=== PATIENT | male | born 2000 | race African-American/Black ===

== ENCOUNTER 2019-06-07 16:27 | Emergency (ER) | payer BC, MEDICAID ==
[~2019-06-07] VITALS: Ht 190.5 cm; Wt 136.4 kg
[2019-06-07] MEDS ORDERED: LORazepam 1 MG tablet PO ONE (16:50)
[2019-06-07] MEDS ORDERED: OLANZapine 5mg rapidly disint. tablet PO ONE (16:50)
[2019-06-07 17:10] LABS: BASOPHILS # (AUTO) 0.1 X10'3 (0-0.2); BASOPHILS % (AUTO) 0.9 % (0-1); EOSINOPHILS # (AUTO) 0.2 X10'3 (0-0.9); EOSINOPHILS % (AUTO) 2.5 % (0-6); HEMOGLOBIN 15.5 g/dl (14.0-17.9); LYMPHOCYTES # (AUTO) 2.6 X10'3 (1.1-4.8); LYMPHOCYTES % (AUTO) 39.9 % (21-51); MEAN CORPUSCULAR HEMOGLOBIN 28.2 PG (27.0-31.0); MEAN CORPUSCULAR HGB CONC 34.4 g/dL (33.0-36.5); MONOCYTES # (AUTO) 0.5 X10'3 (0-0.9); MONOCYTES % (AUTO) 8.3 % (2-12); NEUTROPHILS # (AUTO) 3.1 X10'3 (1.8-7.7); NEUTROPHILS % (AUTO) 48.4 % (42-75); PLATELET COUNT 243 X10'3 (140-440); RED BLOOD COUNT 5.49 X10'6 (4.70-6.10); WHITE BLOOD COUNT 6.5 X10'3 (4.5-11.0)
[2019-06-07 17:10] LABS: CLARITY,URINE CLEAR (Clear); COLOR,URINE YELLOW (Yellow); GLUCOSE, URINE NEGATIVE (Neg); KETONES,URINE NEGATIVE (Neg); LEUKOCYTE ESTERASE ,URINE NEGATIVE (Neg); NITRITES, URINE NEGATIVE (Neg); OCCULT BLOOD,URINE TRACE-LYSED (Neg); PH,URINE 5.5 (4.8-8.0); PROTEIN,URINE TRACE mg/dl (Neg); UROBILINOGEN,URINE 0.2 E.U/dL (0.2-1.0)
[2019-06-07 17:11] LABS: UA COLLECTION TYPE CLN CATCH MIDSTREAM
[2019-06-07 17:15] LABS: BACTERIA,URINE NONE SEEN /HPF (Neg); MUCUS STRANDS NONE SEEN /LPF (Neg); RBC,URINE 0-2 /HPF (0-2); SQUAMOUS EPITHELIAL CELL,UR FEW /LPF (FEW); WBC,URINE 0-4 /HPF (0-4)
[2019-06-07 17:22] LABS: URINE AMPHETAMINE SCREEN NEGATIVE (Neg); URINE BARBITUATE SCREEN NEGATIVE (Neg); URINE BENZODIAZEPINES SCREEN NEGATIVE (Neg); URINE CANNABINOID SCREEN NEGATIVE (Neg); URINE COCAINE SCREEN NEGATIVE (Neg); URINE METHADONE SCREEN NEGATIVE (Neg); URINE OPIATE SCREEN NEGATIVE (Neg); URINE PHENCYCLIDINE SCREEN NEGATIVE (Neg)
[2019-06-07 17:23] LABS: ALANINE AMINOTRANSFERASE 86 U/L (12-78); ALKALINE PHOSPHATASE 110 IU/L (20-180); ANION GAP 9 (8-16); ASPARTATE AMINO TRANSFERASE 35 U/L (10-37); BILIRUBIN,TOTAL 0.3 MG/DL (0.1-1.0); BLOOD UREA NITROGEN 17 MG/DL (7-18); BUN/CREATININE RATIO 13.8 (5.4-32.0); CALCIUM 8.9 MG/DL (8.5-10.1); CHLORIDE 105 MMOL/L (99-107); CREATININE 1.23 MG/DL (0.60-1.10); ETHANOL < 0.010 GM/DL (0.0-0.010); GLUCOSE 111 MG/DL (70-104); POTASSIUM 3.4 MMOL/L (3.5-5.1); SODIUM 143 MMOL/L (135-145); TOTAL CARBON DIOXIDE 29.5 MMOL/L (24-32); TOTAL PROTEIN 8.2 G/DL (6.4-8.2); eGFR 75 ML/MIN
--- NOTE | 2019-06-08 07:03 | NUR ---
pt sleeping quietly
[2019-06-08] MEDS ORDERED: haloperidol lactate 5mg/ml inj IM ONE (08:15)
[2019-06-08] MEDS ORDERED: LORazepam 2 mg/ml vial IM ONE (08:15)
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
--- NOTE | 2019-06-08 09:21 | NUR ---
AMEYA CORONA FATHER. PHONE [phone]
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
--- NOTE | 2019-06-08 09:55 | NUR ---
DR. DAILY HERE TO ASSESS PT. PLEASE SEE NEW ORDERS. ALSO REQUESTED TO CALL [facility] TO FIND OUT WHAT MEDS PT TAKES. ALSO CALLED HIS FATHER IF HE KNOWS WHAT MEDS HES ON
[2019-06-08] MEDS ORDERED: risperiDONE 2mg tablet PO ONE (10:10)
--- NOTE | 2019-06-08 10:23 | NUR ---
SPOKE WITH DAD, GAVE ME THE LIST OF PT MEDS;CELEXA 10MG QD, LATUDA 20MG BID, HCTZ 12.5MG QD, LOREZEPAM 1MG PO QD PRN. MELATONIN 10MG Q HS
[2019-06-08] MEDS ORDERED: divalproex sodium 250mg tablet PO ONE ×2 (11:20→17:00)
[2019-06-08] MEDS ORDERED: DICL75TA5 PO (12:15)
[2019-06-08] MEDS ORDERED: CITA-311 PO (12:15)
[2019-06-08] MEDS ORDERED: LURA20TA PO (12:15)
[2019-06-08] MEDS ORDERED: HYDR12.55 PO (12:15)
[2019-06-08] MEDS ORDERED: MELA10TA2 PO (12:15)
[2019-06-08] MEDS ORDERED: LORA-269 PO (12:15)
[2019-06-08] MEDS ORDERED: LORazepam 1 MG tablet PO PRN (14:00)
--- NOTE | 2019-06-08 14:34 | NUR ---
PT AWAKE RESTING QUIETLY. COOPERATIVE WITH CARE. NO OUTBURST.
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
[2019-06-08 16:26] VITALS: BP 161/91
--- NOTE | 2019-06-08 18:10 | NUR ---
SPOKE WITH DR. ESTEFANI RINCON TO PHONE IN PRESCRIPTION FOR: RISPERIDONE 3MG PO QD, #10 DIVALPROEX CD 500MG TABS 3 TABS PO Q AM, 2 TABS PO QHS. #50. PHONED INTO [facility]. [phone].
[2019-06-08] MEDS ORDERED: Melatonin 3mg tablet PO SCH (21:00)
[2019-06-09] MEDS ORDERED: non-formulary drug (Diclofenac Sodium 1 TAB) PO SCH (08:00)
[2019-06-09] MEDS ORDERED: HYDROchlorothiazide 12.5mg capsule PO SCH (08:00)
[2019-06-09] MEDS ORDERED: DICLOFENAC SODIUM 75 MG PO SCH (08:00)
[2019-06-09 08:25] LABS: HBSAG SCREEN Negative (Negative); HEP A AB, IGM Negative (Negative); HEP B CORE AB, IGM Negative (Negative); HEPATITIS C ANTIBODY <0.1 s/co ratio (0.0-0.9)
== END 2019-06-08 18:35 | disposition home or self-care (01) ==
LOC: ER 16:28
DX: F84.0 Autistic disorder (principal)
CPT/HCPCS: 36415; 80053; 80074; 80305; 80320; 81001; 82140; 84443; 85025; 96372; 99285; J1630; J2060